=== PATIENT | male | born 1970 | race Caucasian/White ===

== ENCOUNTER 2023-08-24 13:53 | Outpatient (CLI) | payer OTHER | END 2023-08-24 13:54 | disposition home or self-care (01) | LOC: BICCT 13:53 | PROVIDERS: ATTEND Family Medicine | DX: E78.5 Hyperlipidemia, unspecified (principal); I25.10 Atherosclerotic heart disease of native coronary artery without angina pectoris | CPT/HCPCS: 75571 ==